=== PATIENT | male | born 1970 | race Hispanic/Latino ===

== ENCOUNTER 2017-05-10 18:01 | Emergency (ER) | payer MEDICAID ==
[2017-05-10] MEDS ORDERED: HYDROCODONE/ACETAMINOPHEN 10/325 MG TAB ONE (18:39)
[2017-05-10] MEDS ORDERED: KETOROLAC TROMETHAMINE 60 MG/2 ML VIAL ONE (18:39)
== END 2017-05-10 19:28 | disposition home or self-care (01) ==
LOC: EDH 18:01
DX: S20.222A Contusion of left back wall of thorax, initial encounter (principal); Z72.0 Tobacco use; W18.39XA Other fall on same level, initial encounter; Y93.89 Activity, other specified; Y92.89 Other specified places as the place of occurrence of the external cause; Y99.8 Other external cause status
CPT/HCPCS: 71045; 71100; 96372; 99284; J1885

== ENCOUNTER 2023-10-10 14:49 | Emergency (ER) | payer MEDICAID ==
[~2023-10-10] VITALS: Ht 167.6 cm; Wt 65.8 kg
[2023-10-10] MEDS ORDERED: LIDOCAINE HCL 1% 20 ML VIAL INJ SCH (15:00)
[2023-10-10] MEDS ORDERED: CLIN-141 PO (15:16)
[2023-10-10] MEDS ORDERED: IBUP-2077 PO (15:16)
[2023-10-10] MEDS: NEOMY SULF/BACITRA/POLYMYXIN B 1 EACH PACKET TP ONE (15:21)
[2023-10-10] MEDS: IBUPROFEN 800 MG TAB PO ONE (15:21)
[2023-10-10] MEDS: TETANUS/DIPHTHERIA TOXOID [ADULT] 0.5 ML VIAL IM ONE (15:24)
[2023-10-10 15:29] VITALS: BP 131/77; PULSE 97; RESP 16; O2SAT 98
== END 2023-10-10 15:40 | disposition home or self-care (01) ==
LOC: EDH 14:49
DX: S61.216A Laceration without foreign body of right little finger without damage to nail, initial encounter (principal); W26.0XXA Contact with knife, initial encounter; Y93.89 Activity, other specified; Y92.89 Other specified places as the place of occurrence of the external cause; Y99.8 Other external cause status
CPT/HCPCS: 90471; 90714

== ENCOUNTER 2024-05-28 15:57 | Emergency (ER) | payer MEDICAID ==
[~2024-05-28] VITALS: Ht 172.7 cm; Wt 68.0 kg
[~2024-05-28 15:57] MED LIST: CLIN-141 PO; IBUP-2077 PO
[2024-05-28 16:02] VITALS: BP 133/87; PULSE 74; RESP 18; TEMP 100.1
[2024-05-28 16:33] LABS: SARS-CoV-2, RNA, NAAT NEGATIVE SARS CoV-2 (NEGATIVE)
[2024-05-28 16:34] LABS: RAPID GROUP A STREP negative (NEGATIVE)
--- NOTE | 2024-05-28 16:40 | ERN ---
ED Note History of Present Illness Stated Complaint: BODY ACHE, FEVER Chief Complaint: Cough Time Seen by MD: 16:08 Dictation: History of present illness: 54-year-old male with no significant past medical history presented to ED with complaints of cough, fever, myalgia of past 4 days duration. He expectorates green sputum. He has loss of appetite as well. He denies the recent travel, exposure to sick contacts, nausea vomiting, bowel or bladder changes. Allergies: Coded Allergies: No Known Allergies (Unverified Allergy, Unknown, 10/10/23) Home Meds Active Scripts Benzonatate (Tessalon Perles) 100 Mg Cap, 1 CAP PO TID for cough for 10 Days, #30 CAP 0 Refills Prov:LAKEISHA PAT MD 05/28/24 Azithromycin (Azithromycin) 250 Mg Tablet, 1 TAB PO AD for 5 Days, #6 TAB 0 Refills 2 the first day followed by 1 for days 2-5 Prov:LAKEISHA PAT MD 05/28/24 Ibuprofen (Ibuprofen 800 mg Tab) 800 Mg Tab, 800 MG PO Q8H PRN for fever or pain, #30 TAB 0 Refills Prov:AMBROSE NOVOA NP 10/10/23 Clindamycin HCl (Clindamycin HCl) 300 Mg Capsule, 1 CAP PO QID for 10 Days, #40 CAP 0 Refills Prov:AMBROSE NOVOA NP 10/10/23 Past Medical History Past Medical History: No Pertinent History Surgical History: None Review of System Dictation REVIEW OF SYSTEMS Positive for cough, fever, myalgia CONSTITUTIONAL: Denies fevers, chills, or night sweats. No unintentional weight loss reported. ENT: No hearing loss, otalgia, otorrhea, rhinitis, rhinorrhea, hoarseness, or sore throat. CARDIOVASCULAR: Denies any exertional angina, dyspnea on exertion, orthopnea, paroxysmal nocturnal dyspnea, palpitations claudication. PULMONARY: Denies any shortness of breath, cough, phlegm / sputum, hemoptysis, pleuritic chest pain. SLEEP: Denies morning headaches, daytime somnolence or napping. Denies difficulty falling asleep, staying asleep, waking from sleep. Denies knowledge of snoring. GASTROINTESTINAL: Denies any type of dysphagia to either liquids or solids. Denies nausea, vomiting, abdominal pain, diarrhea, constipation, blood in stools . NEUROLOGICAL: Denies headache, motor weakness, sensory deficit, vertigo / spinning sensation, gait abnormalities, or tremors. GENITOURINARY: Denies frequency, urgency, nocturia, hematuria or incontinence, low urinary stream, straining to void, urinary intermittency or hesitancy ENDOCRINOLOGY: Denies polyuria, polydipsia, polyphagia or heat / cold intolerance. HEMATOLOGY: Denies thrombophilia / previous clots, or coagulopathy / bleeding disorders. ONCOLOGIC: Denies personal history of malignancy. DERMATOLOGIC: Denies rashes or pruritus. PSYCHIATRIC: Denies any suicidal or homicidal ideation. Denies hallucinations. Initial Vital Sign VS Vital Signs Date Time Temp Pulse Resp B/P (MAP) Pulse Ox O2 Delivery O2 Flow Rate FiO2 05/28/24 16:02 100.0 74 18 133/87 97 Room Air 0 Physical Exam Dictation PHYSICAL EXAM GENERAL APPEARANCE: Well nourished . Awake and alert. Oriented to time, place and person. No acute cardiopulmonary distress. HEENT: Head normocephalic , atraumatic. Sclera anicteric . Pupils are round and reactive. Extraocular movements intact . No conjunctival injection. No nasal congestion. No throat congestion .Oral mucosa moist. NECK: Supple. No JVD. No thyromegaly. No submental, submandibular, pre- /postauricular, occipital or supraclavicular lymphadenopathy. No carotid bruits. CHEST: Normal chest expansion. No Telemetry. LUNGS: Clear to auscultation bilaterally . No rales, rhonchi or any wheezing. Equal tactile fremitus. Resonant to percussion . CARDIOVASCULAR: Regular rate and rhythm. S1 and S2 normal. No rubs, murmurs or gallops. ABDOMEN: Soft, nontender, and nondistended. There is no rebound tenderness, voluntary guarding, or rigidity. No hepatosplenomegaly. Bowel sounds normal in all four quadrants . NEUROLOGICAL: Cranial nerves II-XII grossly intact. Motor is 5/5 in bilateral upper and lower extremities . No sensory deficits. EXTREMITIES: No edema, No cyanosis , No clubbing. Good capillary refill. SKIN: No skin breakdown. No rashes or lesions . PSYCHIATRY: Normal affect .No auditory or visual hallucinations. Normal speech. No dysarthria. Results (Laboratory/Radiology) Laboratory/Radiology Laboratory Tests Test 05/28/24 16:06 Influenza Type A Antigen Negative For Type A Influenza Type B Antigen Negative For Type B SARS-CoV-2, RNA, NAAT NEGATIVE SARS CoV-2 Group A Streptococcus Rapid negative (NEGATIVE) ED Course ED Course Orders Procedure Category Date Status Time Covid Rna Naat LAB 05/28/24 Complete 16:05 Rapid (Group A Strep) LAB 05/28/24 Complete 16:05 Influenza Type A & B, LAB 05/28/24 Complete Rapid 16:05 Chest 1vw RAD 05/28/24 Resulted 16:33 Ketorolac PHA 05/28/24 Complete Tromethamine 15mg/Ml 17:00 0.9%Nacl 1000ml (Ns PHA 05/28/24 Complete 1000ml) 18:00 Dexamethasone 4mg/Ml PHA 05/28/24 Complete 1ml Vial (Dexametha 18:30 Current Medications Medications (Trade) Dose Ordered Sig/Good Route PRN Reason Start Time Stop Time Status Last Admin Dose Admin Dexamethasone Sodium Phosphate (dexaMETHasone 4MG/ML 1ML VIAL) 4 mg ONCE IM 05/28/24 18:30 05/28/24 19:23 DC Ketorolac Tromethamine (toRADol) 15 mg ONCE IM 05/28/24 17:00 05/28/24 19:23 DC Sodium Chloride 1,000 ml @ 100 mls/hr Q10H ONCE IV 05/28/24 18:00 05/28/24 19:23 DC Vital Signs Date Time Temp Pulse Resp B/P (MAP) Pulse Ox O2 Delivery O2 Flow Rate FiO2 05/28/24 16:02 100.0 74 18 133/87 97 Room Air 0 4:30 p.m. patient has low-grade temperature. He complains of cough with green sputum for past 3 days. He appears weak. He denies any shortness of breaths, chest pain, nausea vomiting. Requested CBC, BNP, chest x-ray, procalcitonin. Medical Decision Making MDM Differential diagnosis : Lower respiratory tract infection, acute bronchitis, post viral rhonchi Rationale: Tests considered and ordered secondary to shared decision making include: CBC, BNP, procalcitonin, chest x-ray I will re-evaluate the patient after treatment and diagnostic exams have returned to determine whether they require further testing, can be safely discharged home, or need admission for further treatment and evaluation. Given the social determinants of health affecting care, including literacy, access to medical care, prescription drug management, and [id number] simran gs, I will ensure that treatment plans are tailored accordingly. There are no social concerns with this patient. Risk of complication and/or morbidity or mortality of patient management: None Need for hospitalization: Patient does not meet criteria for hospitalization. Need for emergency major/minor surgery: No Prescription drug management Prescriptions will include symptomatic care Medications-Per medication reconciliation Previous outside records reviewed: Old ER visits. Patient's prior external medical records from other ER visits were reviewed by me as indicated. Prior testing and results from previous visits were reviewed. Prior tests were taken into account with medical decision making and resource utilization, independent historian/historians were used to obtain complete medical history. I independently interpreted the test that were performed, results were reviewed by me and considered findings on radiology. Medical management and examination interpretation discussions was done by me with other qualified healthcare professionals as indicated for the patient's care. Revaluation: His labs, serology, chest x-ray are negative. He was treated with IV fluids and IV Toradol for pain. He remained hemodynamically stable. Disposition : Discharged home DX & DISP Disposition: Discharge Departure Impression: Primary Impression: Acute bronchitis Additional Impression: CAP (community acquired pneumonia) Condition: Stable Scripts Benzonatate (Tessalon Perles) 100 Mg Cap 1 CAP PO TID for cough for 10 Days, #30 CAP 0 Refills Prov: LAKEISHA PAT MD 05/28/24 Azithromycin (Azithromycin) 250 Mg Tablet 1 TAB PO AD for 5 Days, #6 TAB 0 Refills 2 the first day followed by 1 for days 2-5 Prov: LAKEISHA PAT MD 05/28/24 Additional Instructions: Follow-up with primary care provider in 1-2 days Take medications as directed here in the emergency room. It is okay to continue home medications unless otherwise discussed during your visit in the emergency room today. Increase oral hydration. If a wound culture or urine culture was ordered here in the emergency room department, please follow-up with primary care provider and advised them to get reports from our facility. If you had any Mohan wrap/splints that were applied here placed to not remove them until you see your primary care physician. Return to your nearest emergency room if symptoms worsen or if there is no improvement. Call 911 if you need immediate assistance. Referrals: SELF,REFERRAL (PCP) LAKEISHA PAT MD May 28, 2024 16:40 NICOLE MONTELONGO DO May 29, 2024 07:33
[2024-05-28 16:44] LABS: INFLUENZA TYPE A Negative For Type A (NEGATIVE); INFLUENZA TYPE B Negative For Type B (NEGATIVE)
[2024-05-28] MEDS ORDERED: ketOROlac 15MG/ML VIAL (15MG/ML) IM SCH (17:00)
[2024-05-28] MEDS ORDERED: 0.9%NACL 1000ML 1,000 ML IV ONE (18:00)
[2024-05-28] MEDS ORDERED: AZIT250T9 PO (18:08)
[2024-05-28] MEDS ORDERED: dexaMETHasone SOD PHOSPHATE 4 MG/ML 1ML VIAL IM SCH (18:30)
[2024-05-28] MEDS ORDERED: BENZ-39 PO (18:30)
--- NOTE | 2024-05-28 19:06 | HMCIMG ---
PORTABLE CHEST RADIOGRAPH INDICATION: cough, chest pain , fever, green sputum COMPARISON: 05/10/2017 FINDINGS: Heart size is normal. The pulmonary vascularity and pallavi appear normal. No abnormal pulmonary parenchymal opacity or consolidation identified. No significant pleural effusion noted. No pneumothorax detected. IMPRESSION: No radiographic evidence for any acute cardiopulmonary process.
== END 2024-05-28 19:23 | disposition left against medical advice (07) ==
LOC: EDH 15:57
DX: J18.9 Pneumonia, unspecified organism (principal); J20.9 Acute bronchitis, unspecified; Z20.822 Contact with and (suspected) exposure to COVID-19; Z79.899 Other long term (current) drug therapy
CPT/HCPCS: 71045; 87635; 87804; 87880; 99284

== ENCOUNTER 2024-06-18 19:55 | Emergency (ER) | payer MEDICAID ==
[~2024-06-18] VITALS: Ht 172.7 cm; Wt 68.5 kg
[~2024-06-18 19:55] MED LIST changes: +AZIT250T9 PO; +BENZ-39 PO
--- NOTE | 2024-06-18 20:05 | ERN ---
General Chief Complaint: Syncope Stated Complaint: SYNCOPE Time Seen by MD: 19:59 Source: patient History of Present Illness Initial Comments Patient is a 54-year-old male coming in to be evaluated after he states he has been having abdominal pain and rectal pain. He states that he was told he had hepatitis-C and kidney failure some time ago. He also states that earlier today started having pain in his rectum. Allergies: Coded Allergies: No Known Allergies (Unverified Allergy, Unknown, 10/10/23) Home Meds Active Scripts Benzonatate (Tessalon Perles) 100 Mg Cap, 1 CAP PO TID for cough for 10 Days, #30 CAP 0 Refills Prov:LAKEISHA PAT MD 05/28/24 Azithromycin (Azithromycin) 250 Mg Tablet, 1 TAB PO AD for 5 Days, #6 TAB 0 Refills 2 the first day followed by 1 for days 2-5 Prov:LAKEISHA PAT MD 05/28/24 Ibuprofen (Ibuprofen 800 mg Tab) 800 Mg Tab, 800 MG PO Q8H PRN for fever or pain, #30 TAB 0 Refills Prov:AMBROSE NOVOA NP 10/10/23 Clindamycin HCl (Clindamycin HCl) 300 Mg Capsule, 1 CAP PO QID for 10 Days, #40 CAP 0 Refills Prov:AMBROSE NOVOA NP 10/10/23 Past Medical History Past Medical History: Liver Disease, Renal Disese Past Surgical History: None ROS Dictation CONSTITUTIONAL: No chills, no fever, no weakness, no diaphoresis, no malaise. HEAD/FACE: No signs of trauma. EENT: No eye pain, no blurred vision, no tearing, no double vision, no ear pain, no ear discharge, no nose pain, no nasal congestion, no throat pain, no throat swelling, no mouth pain. RESPIRATORY: No cough, no orthopnea, no SOB, no stridor, no wheezing. CARDIOVASCULAR: No chest pain, no edema, no palpitations, no syncope. GASTROINTESTINAL/ABDOMINAL: No abdominal pain, no constipation, no diarrhea, no nausea, no vomiting. GENITOURINARY: No abnormal discharge, no dysuria, no frequent urination, no hematuria. No complaints of pain in the genitals. MUSCULOSKELETAL: No back pain, no gout, no joint pain, no joint swelling, no muscle pain, no muscle stiffness, no neck pain. INTEGUMENTARY: No change in color, no change in hair/nails, no dryness, no lesion, no lumps, no rash. NEUROLOGICAL/PSYCH: No anxiety, not depressed, no emotional problem, no headache, no numbness, no pre-existing deficit, no history of seizures, no tremors, no weakness. HEMATOLOGIC/LYMPHATIC: Not anemic, no history of blood clots, no apparent bleeding, no bruising, glands not swollen. All Systems Negative, Except as Noted. Physical Exam Physical Exam Dictation VITAL SIGNS: Reviewed. GENERAL APPEARANCE: Alert, oriented x3, no acute distress, obese. HEAD AND FACE: Non-traumatic. EYES: PERRL, pink conjunctivas, eyelid no trauma, anterior chamber clear. EARS: Pinnas intact and no signs of trauma or erythema. Ear canals clear and no discharge. TMs no erythema. NOSE: No discharge, no bleeding. OROPHARYNX: Mouth normal, teeth no caries, tongue pink. Pharynx clear, no erythema. Tonsils no exudates, no abscesses noted. Mucous membrane moist. NECK: Supple, non-tender, no thyromegaly, no masses, no JVD, no bruits. BREAST: Deferred. CHEST: No tenderness, no crepitus, no paradoxical movement, no retractions. LUNGS: Clear, well-ventilated, symmetric, no rales, no wheezing, no rhonchi, no stridor, good breath sounds bilaterally. HEART: Regular rate, regular rhythm, no murmur, no gallops. VASCULAR: No peripheral edema. ABDOMEN: Soft, positive bowel sounds, nondistended, no guarding, nontender, no rebound, no masses no hepatomegaly, no splenomegaly, no Higgins's sign, no hernias. RECTAL: Deferred. GENITAL: Deferred. NEUROLOGICAL: Normal speech, gross motor function intact, gross sensory function intact. MUSCULOSKELETAL: Neck nontender, full range of motion, back nontender, full range of motion. EXTREMITIES: Nontender, full range of motion. SKIN: Color pink, dry, no turgor, no rash, no lacerations, no abrasions, no co ntusions. LYMPHATICS: Deferred. Results Laboratory and Microbiology Lab and Micro Result Laboratory Tests Test 06/18/24 20:14 06/19/24 00:34 06/19/24 04:04 06/19/24 06:39 White Blood Count 5.0 K/uL (4.8-10.8) Red Blood Count 4.70 MIL/uL (4.50-6.20) Hemoglobin 14.4 g/dL (14.0-18.0) Hematocrit 42.4 % (42-54) Mean Corpuscular Volume 90.2 fL (79-99) Mean Corpuscular Hemoglobin 30.6 pg (27.0-33.0) Mean Corpuscular Hemoglobin Concent 34.0 g/dL (32.0-36.0) Red Cell Distribution Width 12.7 % (11.0-15.5) Platelet Count 198 K/uL (130-400) Mean Platelet Volume 9.4 fL (7.5-10.5) Immature Granulocyte % (Auto) 0.2 % (0-1) Neutrophils (%) (Auto) 42.6 % (40.0-77.0) Lymphocytes (%) (Auto) 42.9 % (21.0-51.0) Monocytes (%) (Auto) 8.7 % (3.0-13.0) Eosinophils (%) (Auto) 5.4 % (0.0-8.0) Basophils (%) (Auto) 0.2 % (0.0-5.0) Neutrophils # (Auto) 2.2 K/uL (1.8-7.7) Lymphocytes # (Auto) 2.2 K/uL (1.0-4.8) Monocytes # (Auto) 0.4 K/uL (0.1-1.0) Eosinophils # (Auto) 0.27 K/uL (0.00-0.70) Basophils # (Auto) 0.01 K/uL (0.00-0.20) Absolute Immature Granulocyte (auto 0.01 K/uL (0-1) Nucleated Red Blood Cells 0.0 % (0.0-0.19) Prothrombin Time 10.4 SEC (9.6-11.6) Prothromb Time International Ratio 0.98 (0.85-1.15) Activated Partial Thromboplast Time 27.5 SEC (26.3-35.5) Sodium Level 146 mmol/L (136-145) H Potassium Level 3.4 mmol/L (3.5-5.1) L Chloride Level 107 mmol/L (101-111) Carbon Dioxide Level 30 mmol/L (21-32) Blood Urea Nitrogen 6 mg/dL (7-18) L Creatinine 0.8 mg/dL (0.5-1.3) Glomerular Filtration Rate Calc 105 mL/min (>90) Random Glucose 111 mg/dL (70-105) H Total Calcium 8.1 mg/dL (8.5-10.1) L Magnesium Level 2.20 mg/dL (1.80-2.40) Total Bilirubin 0.5 mg/dL (0.2-1.0) Direct Bilirubin 0.2 mg/dL (0.0-0.3) Aspartate Amino Transf (AST/SGOT) 106 U/L (10-37) H Alanine Aminotransferase (ALT/SGPT) 93 U/L (12-78) H Alkaline Phosphatase 73 U/L (50-136) Total Creatine Kinase 417 U/L (21-232) *H Troponin I High Sensitivity 7 ng/L (4-75) B-Type Natriuretic Peptide 73 pg/mL (0-100) Total Protein 7.4 g/dL (6.0-8.3) Albumin 3.7 g/dL (3.5-5.0) Serum Alcohol 290 mg/dL (0-10) H 145 mg/dL (0-10) H 103 mg/dL (0-10) H Urine Color LIGHT-YELLOW (YELLOW) Urine Appearance CLEAR (CLEAR) Urine pH 5.0 (5.0-8.0) Urine Specific [place] 1.013 (1.001-1.031) Urine Protein NEGATIVE mg/dL (NEGATIVE) Urine Glucose (UA) NEGATIVE mg/dL (NEGATIVE) Urine Ketones NEGATIVE mg/dL (NEGATIVE) Urine Occult Blood NEGATIVE (NEGATIVE) Urine Nitrate NEGATIVE (NEGATIVE) Urine Bilirubin NEGATIVE mg/dL (NEGATIVE) Urine Urobilinogen 0.2 mg/dL (0.2-1.0) Urine Leukocyte Esterase NEGATIVE Love/uL Urine Opiates Screen NEGATIVE (NEGATIVE) Urine Barbiturates Screen NEGATIVE (NEGATIVE) Urine Phencyclidine Screen NEGATIVE (NEGATIVE) Urine Amphetamines Screen NEGATIVE (NEGATIVE) Urine Benzodiazepines Screen NEGATIVE (NEGATIVE) Urine Cocaine Screen POSITIVE (NEGATIVE) H Urine Marijuana (THC) Screen POSITIVE (NEGATIVE) H Labs Reviewed?: Yes EKG/XRAY/US/CT/MRI EKG Comment time 8:11 p.m. Ventricular rate 63 Sinus rhythm [place] [address] wave elevation or depression MDM MDM: Differential diagnosis: Polysubstance abuse, alcohol abuse, Patient is a 54-year-old gentleman brought in by EMS per multiple complaints. Patient states he has a history of hepatitis-C in his here for further ev aluation. Laboratory workup positive for polysubstance abuse and alcohol. Patient was hydrated with IV fluids alcohol levels decreased significantly. Patient will be discharged with family member. ED Course Orders Procedure Category Date Status Time Cbc With Differential LAB 06/18/24 Complete 20:00 Prothrombin Time With LAB 06/18/24 Complete INR 20:00 B-Type Natriuretic LAB 06/18/24 Complete Peptide 20:00 Chest 1vw RAD 06/18/24 Resulted 20:00 12 Lead Ekg Tracing- EKG 06/18/24 Logged Technical 20:00 Magnesium LAB 06/18/24 Complete 20:00 Creatine Kinase, Total LAB 06/18/24 Complete 20:00 Troponin I High LAB 06/18/24 Complete Sensitivity 20:00 Urinalysis Profile LAB 06/18/24 Complete 20:00 Partial LAB 06/18/24 Complete Thromboplastin Time 20:00 Basic Metabolic Panel LAB 06/18/24 Complete 20:00 Drug Screen Urine LAB 06/18/24 Complete 20:00 Ct Abdomen/Pelvis W/O CT 06/18/24 Resulted Contrast 20:01 Hepatic Function Panel LAB 06/18/24 Complete 21:32 Ketorolac PHA 06/18/24 Complete Tromethamine 15mg/Ml 22:00 0.9%Nacl 1000ml (Ns PHA 06/18/24 Complete 1000ml) 23:00 Alcohol, Blood LAB 06/19/24 Complete 00:27 0.9%Nacl 1000ml (Ns PHA 06/19/24 Complete 1000ml) 02:00 Alcohol, Blood LAB 06/19/24 Complete 02:32 Alcohol, Blood LAB 06/19/24 Complete 06:40 Current Medications Medications (Trade) Dose Ordered Sig/Good Route PRN Reason Start Time Stop Time Status Last Admin Dose Admin Ketorolac Tromethamine (toRADol) 15 mg ONCE ONCE IM 06/18/24 22:00 06/18/24 22:01 DC 06/18/24 21:53 Sodium Chloride 1,000 ml @ 0 mls/hr ONCE ONCE IV 06/18/24 23:00 06/18/24 23:01 DC 06/18/24 23:04 Sodium Chloride 1,000 ml @ 0 mls/hr ONCE ONCE IV 06/19/24 02:00 06/19/24 02:01 DC 06/19/24 02:10 Vital Signs Date Time Temp Pulse Resp B/P (MAP) Pulse Ox O2 Delivery O2 Flow Rate FiO2 06/19/24 06:40 97.9 71 16 101/72 99 Room Air* 0 21 06/19/24 04:30 98.2 74 16 97/67 96 Room Air* 0 21 06/19/24 00:25 98.4 68 14 96/64 99 Room Air* 0 21 06/18/24 20:41 98.6 85 16 120/78 98 Room Air* 0 21 06/18/24 19:57 98.1 87 16 120/78 96 Room Air 0 DX & DISP Disposition: Discharge Departure Impression: Primary Impression: Polysubstance abuse Additional Impressions: Alcohol abuse, Acute hemorrhoid Condition: Stable Scripts Phenyleph/Pramoxin/Glycr/W.pet (Preparation H Cream) 0.25 %-1 % Cream..g. 1 APPL TP BID for 30 Days, #51 GM 0 Refills Prov: NICOLE MONTELONGO DO 06/19/24 Additional Instructions: Your symptoms are consistent with alcohol intoxication. You also has a hemorrhoid causing your rectal pain. Your blood work including your liver and kidney function is unremarkable. The CT scan of your abdomen and pelvis his unremarkable. I have prescribed cream to use for the hemorrhoid. He was as needed. Follow up with the primary doctor. Avoid recreational drug use and alcohol use. Referrals: SELF,REFERRAL (PCP) ALEX HEARD MD Jun 18, 2024 20:05 NICOLE MONTELONGO DO Jun 19, 2024 07:19
[2024-06-18 20:37] LABS: BASOPHILS # (AUTO) 0.01 K/uL (0.00-0.20); BASOPHILS % (AUTO) 0.2 % (0.0-5.0); EOSINOPHILS # (AUTO) 0.27 K/uL (0.00-0.70); EOSINOPHILS % (AUTO) 5.4 % (0.0-8.0); HEMATOCRIT 42.4 % (42-54); IMMATURE GRANULOCYTE ABSOLUTE 0.01 K/uL (0-1); LYMPHOCYTES # (AUTO) 2.2 K/uL (1.0-4.8); LYMPHOCYTES % (AUTO) 42.9 % (21.0-51.0); MEAN CORPUSCULAR HEMOGLOBIN 30.6 pg (27.0-33.0); MEAN CORPUSCULAR VOLUME 90.2 fL (79-99); MONOCYTES # (AUTO) 0.4 K/uL (0.1-1.0); MONOCYTES % (AUTO) 8.7 % (3.0-13.0); NEUTROPHILS # (AUTO) 2.2 K/uL (1.8-7.7); NEUTROPHILS % (AUTO) 42.6 % (40.0-77.0); PLATELET COUNT (AUTO) 198 K/uL (130-400); RED CELL DISTRIBUTION WIDTH 12.7 % (11.0-15.5)
[2024-06-18 20:42] LABS: CREATININE 0.8 mg/dL (0.5-1.3); POTASSIUM 3.4 mmol/L (3.5-5.1)
[2024-06-18 20:48] LABS: INR 0.98 (0.85-1.15); PROTHROMBIN TIME 10.4 SEC (9.6-11.6)
[2024-06-18 20:49] LABS: PARTIAL THROMBOPLASTIN TIME 27.5 SEC (26.3-35.5)
[2024-06-18 20:58] LABS: B-TYPE NATRIURETIC PEPTIDE 73 pg/mL (0-100)
[2024-06-18 21:00] LABS: MAGNESIUM 2.2 mg/dL (1.80-2.40)
--- NOTE | 2024-06-18 21:29 | HMCIMG ---
CT ABDOMEN/PELVIS W/O CONTRAST CLINICAL HISTORY: abd pain/ rectal pain COMPARISON: None TECHNIQUE: Sequential axial images of abdomen and pelvis without contrast and with sagittal and coronal reconstructions. CT was performed with one or more of the following dose reduction techniques: automated exposure control, adjustment of the mA and/or kV according to patient size, or use of iterative reconstruction technique FINDINGS: The lung bases are clear. The liver and spleen gallbladder pancreas and adrenal glands and kidneys and bladder are unremarkable. There is no identified bowel obstruction. There is no bulky abdominal or retroperitoneal lymphadenopathy. The appendix is normal. The prostate gland is unremarkable. There is no identified perirectal stranding or obvious wall thickening. The bony structures are unremarkable. IMPRESSION: There are no acute findings.
--- NOTE | 2024-06-18 21:39 | HMCIMG ---
CHEST 1VW CLINICAL HISTORY: cp COMPARISON: 05/28/2024 TECHNIQUE: Single view of the chest was obtained. FINDINGS: There is mild hypoventilation. There is mild retrocardiac increased opacification and blunting left costophrenic angle. Cardiac size is normal flow enlarged. The bony structures are within normal limits. IMPRESSION: Hypoventilation with borderline heart size and mild retrocardiac and left base atelectasis infiltrate or effusion.
[2024-06-18] MEDS: ketOROlac 15MG/ML VIAL (15MG/ML) IM ONE (21:53)
[2024-06-18 21:56] LABS: ALBUMIN 3.7 g/dL (3.5-5.0); BILIRUBIN,DIRECT 0.2 mg/dL (0.0-0.3); BILIRUBIN,TOTAL 0.5 mg/dL (0.2-1.0); TOTAL PROTEIN, SERUM 7.4 g/dL (6.0-8.3)
[2024-06-18] MEDS: 0.9%NACL 1000ML 1,000 ML IV ONE (23:04)
[2024-06-19 00:55] LABS: ADD UA MICROSCOPIC NO; APPEARANCE,URINE CLEAR (CLEAR); BILIRUBIN,URINE NEGATIVE (NEGATIVE); COLOR,URINE LIGHT-YELLOW (YELLOW); GLUCOSE, URINE (UA) NEGATIVE (NEGATIVE); KETONES,URINE NEGATIVE (NEGATIVE); LEUKOCYTE ESTERASE ,URINE NEGATIVE Leu/uL (NEGATIVE); NITRATE,URINE NEGATIVE (NEGATIVE); OCCULT BLOOD,URINE NEGATIVE (NEGATIVE); PROTEIN,URINE NEGATIVE (NEGATIVE); UROBILINOGEN,URINE 0.2 mg/dL (0.2-1.0)
[2024-06-19] MEDS: 0.9%NACL 1000ML 1,000 ML IV ONE (02:10)
[2024-06-19 02:50] LABS: AMPHET/METH SCREEN,URINE NEGATIVE (NEGATIVE); BARBITURATE SCREEN, URINE NEGATIVE (NEGATIVE); BENZODIAZEPINES SCREEN,URINE NEGATIVE (NEGATIVE); CANNABINOID SCREEN,URINE POSITIVE (NEGATIVE); COCAINE SCREEN,URINE POSITIVE (NEGATIVE); OPIATE SCREEN,URINE NEGATIVE (NEGATIVE); PHENCYCLIDINE SCREEN,URINE NEGATIVE (NEGATIVE)
--- NOTE | 2024-06-19 04:44 | NUR ---
attempt to call the spouse, no answer
[2024-06-19 07:17] VITALS: BP 100/60; PULSE 70; RESP 16; TEMP 97.9; O2SAT 96
[2024-06-19] MEDS ORDERED: PHEN26CR2 TP (07:18)
--- NOTE | 2024-06-19 08:25 | EKG ---
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
== END 2024-06-19 07:33 | disposition home or self-care (01) ==
LOC: EDH 19:55
DX: F19.10 Other psychoactive substance abuse, uncomplicated (principal); F10.10 Alcohol abuse, uncomplicated; K64.9 Unspecified hemorrhoids; Z79.899 Other long term (current) drug therapy
CPT/HCPCS: 99285; 74176; 96360; 71045; 82550; 80076; 83735; 84484; 80048; 83880; 80305; 85025; 85610; 85730; 36415 ×2; 93005; 96372; 81003; J1885; J7030